=== PATIENT | male | born 1985 | race Hispanic/Latino ===

== ENCOUNTER 2016-10-01 13:47 | Emergency (ER) | payer OTHER ==
[~2016-10-01] VITALS: Ht 167.6 cm; Wt 100.0 kg
[2016-10-01 14:13] VITALS: BP 134/91; PULSE 81; RESP 16; O2SAT 100
--- NOTE | 2016-10-01 15:02 | ED.REPORT ---
HPI-Dental/Mouth Prob Date of Service Oct 01, 2016 ED Provider: Ti Mcelroy MD Pt is a 31 y/o male presenting to the ED due to left lower jaw abscess onset about 1 month ago. He had an abscess as a complication of dental work performed at [facility] on August 31. Subsequently, he developed swelling of the left lower jaw and was diagnosed with an abscess. He was given one round of Amoxicillin with no relief. He then went back to have it re-evaluated and was started on Clindamycin which he finished 3 days ago. This has also provided no relief. Pt denies difficulty swallowing, trouble breathing, drooling, fever, vomiting. Nursing Notes Stated Complaint: LEFT LOWER JAW Chief Complaint: Skin Rash/Abscess Nursing Notes Reviewed: Yes Allergies: Coded Allergies: No Known Allergies (Unverified , 10/01/16) Scheduled Amoxicillin/Clav K 875-125 mg (Augmentin 875-125 mg) 1 Each Tablet 1 TABLET PO BID General Time Seen by MD: 14:55 Chief Complaint Jaw swelling Hx Obtained From: Patient Arrived By: Walk-in Onset Occurred: More than a week ago... (1 month) Symptom Duration: Since onset Quality: Painful Severity: Current: Moderate Severity: Maximum: Moderate Recent Healthcare: Previous diagnosis Similar Sx Previous: Yes Past Medical History Past Medical History Jaw abscess Past Surgical History None reported Smoking History Unknown if Ever Smoker Ambulatory Status Independent Review of Systems Constitutional: Denies: Chills, Fever Respiratory: Denies: Shortness of breath GI: Denies: Dysphagia, Nausea, Vomiting Complete sys rev & neg: except as marked. Skin: Reports Rash, Reports Swelling Physical Exam Initial Vital Signs Vital Signs (First) Date Time Temp Pulse Resp B/P Pulse Ox O2 Delivery O2 Flow Rate FiO2 10/01/16 14:13 37.8 81 16 134/91 100 Room Air Initial VS: Reviewed, Vital signs abnormal Head / Eyes: Atraumatic, Normocephalic, PERRL Respiratory: Breath sounds normal, Clear to auscultation, No respiratory distress Cardiovascular: Regular rate & rhythm, Heart sounds normal, Intact distal pulses Abdomen / GI: Soft, No distention Extremities: Vascular intact, Neuro intact, No swelling, No tenderness Skin: Warm, Dry, No cyanosis Neurologic: Alert, Oriented, Nonfocal Psychiatric: Mood/affect normal, Behavior normal, Normal thought content ENT: Atraumatic, Airway patent, Mucous membranes moist, Pharynx NL 2x2 cm submandibular swelling on the left. No overlying erythema or discharge Mild fluctuance appreciated Neck: Atraumatic, Supple, No meningismus, Full range of motion General/Constitutional: Awake, Alert, No acute distress, Well appearing, Cooperative, Not toxic appearing Interpretation & Diagnostics Interpretation & Diagnostics: CT neck soft tissue w/ contrast: IMPRESSION: 1. Bilobed rim-enhancing lesion within the left submandibular subcutaneous tissues. There is no definite associated bony abnormality to suggest osteomyelitis or draining sinus. However, early osteomyelitis or associated dental abnormality cannot be excluded. Please correlate with physical exam and history. These findings were discussed with Dr. Manuel Don at 5:05 PM on 10/01/16. Dictated by: Delores Wynn M.D. on 10/01/2016 at 16:55 Approved by: Delores Wynn M.D. on 10/01/2016 at 17:07 Lab Results Interpretation Result Diagram: 10/01/16 1545 10/01/16 1545 Test 10/01/16 15:45 White Blood Count 11.3th/mm3 (3.8-10.1) Red Blood Count 5.41mil/mm3 (4.40-5.80) Hemoglobin 15.8g/dL (13.8-17.2) Hematocrit 45.8% (41.0-50.0) Mean Corpuscular Volume 84.7fL (81-100) Mean Corpuscular Hemoglobin 29.2pg (27.0-35.0) Mean Corpuscular Hemoglobin Concent 34.5% (32.0-37.0) Red Cell Distribution Width 12.5% (12.3-15.4) Platelet Count 334bil/L (150-400) Neutrophils (%) (Auto) 65.3% (40-74) Lymphocytes (%) (Auto) 25.6% (14-46) Monocytes (%) (Auto) 7.7% (4-12) Eosinophils (%) (Auto) 0.9% (0-5) Basophils (%) (Auto) 0.2% (0-3) Sodium Level 139mEq/L (134-144) Potassium Level 3.7mEq/L (3.5-5.2) Chloride Level 99mEq/L (97-108) Carbon Dioxide Level 26mmol/L (18-29) Blood Urea Nitrogen 10mg/dL (6-20) Creatinine 0.66mg/dL (0.76-1.27) Estimat Glomerular Filtration Rate 148mL/min (>59) Glucose Level 304mg/dL (60-99) Calcium Level 8.8mg/dL (8.5-10.1) Total Bilirubin 0.4mg/dL (0.0-1.2) Aspartate Amino Transf (AST/SGOT) 22U/L (0-50) Alanine Aminotransferase (ALT/SGPT) 23U/L (0-44) Alkaline Phosphatase 92U/L (25-150) Total Protein 7.3g/dL (6.4-8.4) Albumin 4.4g/dL (3.4-5.0) Hold De Guzman Top Tube Received (Received) Re-Eval/Medical Decision Med Decision/Clinical Course 31-year-old male with left neck abscess 1 month. He is status post amoxicillin and clindamycin and is unsure if is getting better. No drainage or redness. No systemic symptoms. No difficulty breathing, drooling, dysphasia. CT shows small 0.5 x 1 cm abscess. I discussed the patient option of I&D which she would prefer no I&D at this time and prefers trying a new antibiotic. Will place on Augmentin 2 weeks with return precautions. Return precautions immediately if any dysphagia, drooling, difficulty breathing, fevers, vomiting, any worsening swelling or any other new or worsening symptoms. Re-Evaluation/Progress : Time of Eval: 17:13 Re-Evaluation/Progress Note: Pt rechecked. Discussed I&D vs outpatient treatment. He would like to try outpatient treatment. Informed pt of plan for treatment. Pt understands and agrees with plan for treatment. F/U and RTER warnings given. All questions addressed. Counseled Regarding: Diagnosis, Lab results, Need for follow-up, When/why to return to ED Discharge & Departure Primary Impression: Neck abscess Disposition: Home Discharge Condition All VS Reviewed: Yes Condition: Stable Patient Instructions: Abscess (ED) Additional Instructions: Your CT scan today showed a 0.6 x 1.6 x 1.4 cm abscess. Your labs were normal other than a blood sugar of 300. Please discuss this with a primary care doctor. Take the full course of Augmentin as directed for 14 days. Diarrhea is a common side-effect. Return to the emergency department if you notice increased redness, swelling, difficulty swallowing, difficulty breathing, high fever, vomiting, severe pain, or other concerning symptoms. If one of these occur, you will likely need to have this abscess incised and drained. Follow up with a primary care doctor in 7 days if there is no change. Referrals: [facility] Scribe Attestation Portions of this note were transcribed by Valentin Fragoso. I, Dr. Mcelroy personally performed the history, physical exam and medical decision-making; I reviewed and confirmed the accuracy of the information in the transcribed note. Signed by Tessa Burton, 10/01/16 - 1531 Ti Mcelroy MD Oct 01, 2016 15:02 VALENTIN FRAGOSO Oct 01, 2016 15:09
[2016-10-01 16:00] LABS: BASOPHILS % (AUTO) 0.2 % (0-3); EOSINOPHILS % (AUTO) 0.9 % (0-5); MONOCYTES % (AUTO) 7.7 % (4-12); Mean Corpuscular Hemoglobin 29.2 pg (27.0-35.0); Mean Corpuscular Volume 84.7 fL (81-100); NEUTROPHILS % (AUTO) 65.3 % (40-74); Platelet Count 334 bil/L (150-400)
--- NOTE | 2016-10-01 17:08 | DRSVH ---
PROCEDURE: CT NECK SOFT TISSUES WITH CONTRAST ([id number]) INDICATIONS: neck abscess TECHNIQUE: After the administration of intravenous contrast, 3.0 mm axial sections acquired from the sella to th e aortic arch. Additional oblique axial 3.0 mm sections acquired through the pharynx. 3 mm thick co evert reformats were generated. For radiation dose reduction, the following was used: automated exp osure control. COMPARISON: None. FINDINGS: Image quality: Excellent. Lymph nodes: No enlarged lymph nodes seen throughout the neck. Vessels: Visualized vasculature appears patent. Neck spaces: The oropharynx, nasopharynx, and pharynx demonstrate no mucosal lesions. There are mult iple bilateral incidentally noted tonsilloliths. The vocal cords, false vocal cords, pyriform sinuses , epiglottis, vallecula, and tongue base all appear normal. Extramucosal spaces appear unremarkable. Glands: The parotid and submandibular glands appear normal. Thyroid gland is unremarkable. Miscellaneous: A bilobed enhancing soft tissue mass is present within the left submental subcutaneous tissue. The deeper portion of this enhancing lesion has the appearance of a small subcutaneous phleg mon. The more superficial portion of this lesion demonstrates rim enhancement and central hypodensity and measures 0.6 x 1.6 x 1.4 cm. There is no associated bony abnormality in the adjacent mandible. Visualized brain and orbits appear normal. Lung apices appear clear. Superficial soft tissues appea r normal. Bones: No suspicious bony lesions. Visualized sinuses and mastoids appear unremarkable. IMPRESSION: 1. Bilobed rim-enhancing lesion within the left submandibular subcutaneous tissues. There is no defin ite associated bony abnormality to suggest osteomyelitis or draining sinus. However, early osteomyeli tis or associated dental abnormality cannot be excluded. Please correlate with physical exam and hist ory. These findings were discussed with Dr. Manuel Don at 5:05 PM on 10/01/16. Dictated by: Delores Wynn M.D. on 10/01/2016 at 16:55 Approved by: Delores Wynn M.D. on 10/01/2016 at 17:07
[2016-10-01] MEDS ORDERED: AMOX-366 PO (17:13)
[2016-10-01] MEDS ORDERED: Amoxicillin-Clav 875-125 mg Tablet PO ONE (17:15)
== END 2016-10-01 17:48 | disposition home or self-care (01) ==
LOC: SED 13:50
DX: L02.11 Cutaneous abscess of neck (principal)
CPT/HCPCS: 36415; 70491; 80053; 85025; 99284; Q9967

== ENCOUNTER 2017-01-03 06:07 | Emergency (ER) | payer OTHER ==
[~2017-01-03] VITALS: Ht 165.1 cm; Wt 97.7 kg
[~2017-01-03 06:07] MED LIST: AMOX-366 PO
[2017-01-03 06:10] VITALS: BP 119/77; PULSE 83; RESP 18; O2SAT 100
--- NOTE | 2017-01-03 06:15 | ED.REPORT ---
HPI-Rash / Abscess Date of Service January 03, 2017 ED Provider: Dr. Christiano Wheatley The patient is a 31 year old male w/ a hx of DM on metformin that reports to the ED due to an abscess on his left neck onset over 4 months ago following a dental surgery. weeks ago. He woke up this morning and the wound was bleeding. C /o associated fever and vomiting 2 days ago. He has been on 3 different kind of antibiotics and is currently taking Penicillin 250mg 4 times a day. He is able to eat and drink normally. Nursing Notes Stated Complaint: SKIN RASH/ ABSCESS Chief Complaint: Skin Rash/Abscess Nursing Notes Reviewed: Yes Allergies: Coded Allergies: No Known Allergies (Unverified , 10/01/16) Scheduled Amoxicillin/Clav K 875-125 mg (Augmentin 875-125 mg) 1 Each Tablet 1 TABLET PO BID General Time Seen by MD: 06:15 Chief Complaint Abscess Hx Obtained From: Patient Arrived By: Walk-in Onset Occurred: More than a week ago... (4 months) Symptom Duration: Since onset Location: : Neck (left anterior) Severity: Current: No pain currently Associated with: Reports Fever, Reports Vomiting Recent Healthcare: Recent doctor visit Similar Sx Previous: Yes Past Medical History Past Medical History Jaw abscess DM Past Surgical History None reported Smoking History Unknown if Ever Smoker Ambulatory Status Independent Review of Systems Constitutional: Reports: Fever, Denies: Chills GI: Reports: Vomiting, Denies: Diarrhea, Nausea Skin: Reports Rash (abscess on left neck), Denies Swelling Complete sys rev & neg: except as marked. Hematologic: Reports Bleeding (abscess on left neck) Physical Exam Initial Vital Signs Vital Signs (First) Date Time Temp Pulse Resp B/P Pulse Ox O2 Delivery O2 Flow Rate FiO2 01/03/17 06:10 36.4 83 18 119/77 100 Room Air Initial VS: Reviewed General/Constitutional: Awake, Alert, No acute distress, Cooperative, Not toxic appearing Abscess #1 Location/Condition: Positive: Location (left neck), Small, Negative: Erythema surrounding, Fluctuant left anterior neck area 1/2 cm area of skin thickening and mild induration without fluctuance scant dried blood no surrounding cellulitis no significant swelling Head / Eyes: Normocephalic, PERRL ENT: Atraumatic, Mucous membranes moist Upper Extremity / MS: Inspection NL, Full range of motion, No deformity Lower Extremity / Pelvis / MS: Inspection NL, Full range of motion, No deformity Neurologic: Oriented X3, Speech NL, No motor deficits Back: Atraumatic, Inspection NL Re-Eval/Medical Decision Med Decision/Clinical Course Overall, reassuring exam, it appears this patient has had a chronic infection and spontaneously began draining last night. There is no benefit to incision and drainage at this point. It sounds like the patient started on appropriate antibiotic therapy. Patient is discharged and recommended follow-up with ear nose and throat. Counseled Regarding: Diagnosis, Lab results, Need for follow-up, When/why to return to ED Discharge & Departure Impression: Primary Impression: Abscess Disposition: Home Discharge Condition All VS Reviewed: Yes Condition: Stable Additional Instructions: Thank you for entrusting us with your care today. The abscess appears to the healing normally. The antibiotics are working and responding appropriately. I recommend putting a warm compress on the infection 10-15 minutes at a time. You can also wash it regularly with soap and water. Follow up with your primary care physician in the next week. Return to the Emergency Department for any new or worsening symptoms including increased redness, high fever, discharge, or pain. . I hope you feel better soon, enjoy the sunshine! Referrals: JIM (PCP) Kelvinibmack Attestation Portion of this note were transcribed by Ghada Scales. I, Dr. Wheatley, personally performed the history, physical exam, and medical decision-making: I reviewed and confirmed the accuracy for the information in the transcribed note. Signed by: naeem Elizabeth, 01/03/17 0900 copies to: Christiano Cormier DO January 03, 2017 06:15 Ghada Scales January 03, 2017 06:24
== END 2017-01-03 06:29 | disposition home or self-care (01) ==
LOC: SED 06:07
DX: L02.11 Cutaneous abscess of neck (principal); E11.9 Type 2 diabetes mellitus without complications